=== PATIENT | male | born 1950 | race Caucasian/White ===

== ENCOUNTER 2024-12-10 22:18 | Inpatient (IN) | payer OTHER, SELFPAY ==
[2024-12-10 18:05] VITALS: BP 151/83
--- NOTE | 2024-12-10 18:08 | ED.GENMED ---
ED Provider Triage
<Deepak Vallejo PA-C - Last Filed: 12/10/24 18:10>
-
Patient seen by provider in Triage?: Seen in Triage
Attestation: A medical screening examination has been initiated by a qualified medical provider. Based on the assessment performed at this time, it has been determined that an emergent medical condition may exist and the patient has been informed
that further medical evaluation and possible additional diagnostic testing may be needed.
HPI: 74-year-old male presents with cough fatigue and fever. Several weeks ago he had influenza A. He really visit his family doctor and was started on amoxicillin and Tessalon. He has been on this but he now has a fever. Temperature at home was
102.7. He is afebrile triage with normal heart rate and blood pressure. Will order labs COVID and flu testing as well as chest x-ray
GENERAL: Alert , in no apparent distress
EYE: No visual abnormalities.
NECK: Trachea midline
ENT: No visible abnormalities.
LUNGS: No acute respiratory distress
NEUROLOGICAL: Alert and oriented
SKIN: Skin intact. No visible changes.
MUSCULOSKELETAL: Moving extremities normally
PSYCH: Normal and appropriate interaction.
This is a medical evaluation conducted in person to initiate diagnostic evaluation and provide initial therapeutics. Please see further documentation by the treating clinician.
History of Present Illness
<Deepak Vallejo PA-C - Last Filed: 12/10/24 18:10>
General
Chief Complaint: Fever
Time Seen by Provider: 12/10/24 20:36
<Armando Romero DO - Last Filed: 12/10/24 21:00>
General
Source: patient and family
Exam Limitations: none
Nursing documentation reviewed up to this point in time: agreed with
History of Present Illness
History of Present Illness:
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
methotrexate followed by rheumatology today he was confused had fever cough decreased p.o. intake no abdominal pain
Past History
<Armando Romero DO - Last Filed: 12/10/24 21:00>
Past History
ED Past Medical History: Other (RA, polymyalgia)
Social History
Tobacco: Former smoker
Alcohol: None
Drug: None
Living: with family
Employment: Retired
Review of Systems
<Armando Romero DO - Last Filed: 12/10/24 21:00>
Review of Systems
All Other Systems: Not applicable
Constitutional: Reports fever, fatigue and chills
Respiratory: Reports cough and trouble breathing
Cardiac: Reports no symptoms
ABD/GI: Reports nausea and anorexia
: Reports no symptoms
Skin: Reports no symptoms
Neurological: Reports weakness
Phy Exam
<Armando Romero DO - Last Filed: 12/10/24 21:00>
Physical Exam
Physical Exam:
Physical Exam
General: Ill-appearing male cough
Neck: Lips are slightly
Heart: Regular
Lungs: Rhonchi with diminished breath sounds on the
Abdomen: Nontender
Neuro: alert and oriented. no focal neurological deficits
Skin: no rash
Psychiatric: well kept. interactive and cooperative
Extremities: no edema. no calf tenderness.
Course
<Deepak Vallejo PA-C - Last Filed: 12/10/24 18:10>
Orders/Labs/Results
Orders:
Orders
12/10/24 18:05
CR Chest - 2 Views Urgent
Comment:
Reason For Exam: cough, fever
12/10/24 18:23
COVID-19 Antigen Urgent
Source: Nasal Swab
Complete Blood Count/With Diff Urgent
Comprehensive Metabolic Panel Urgent
Influenza A+B Rapid Molecular Urgent
TOVA Source: Nasal Swab
Specimen Description:
12/10/24 20:49
Acetaminophen [Tylenol] 650 mg PO NOW STA
Ipratropium/Albuterol Sulfate [Duoneb] 3 ml INH R NOW STA
12/10/24 20:50
Lactic Acid Urgent
Cefepime HCl [Maxipime] 2,000 mg IV NOW STA
O2 Therapy [RESP] Urgent
Titrate/Wean O2 to maintain O2 sat greater than (%): 98
12/10/24 21:00
Blood Culture Q30M
TOVA Source: Blood/Venous
Specimen Description:
12/10/24 21:30
Blood Culture Q30M
TOVA Source: Blood/Venous
Specimen Description:
Abnormal Lab Results
12/10/24
18:23
WBC 26.8 H 10^3/uL
(4.8-10.8)
RBC 4.46 L 10^6/uL
(4.70-6.10)
MCV 94.6 H fL
(80.0-94.0)
MCH 32.5 H pg
(27.0-31.0)
Abs Immat Gran (auto) 0.2 H 10^3/uL
(0-0.05)
Absolute Neuts (auto) 22.9 H 10^3/uL
(1.4-6.5)
Absolute Monos (auto) 1.6 H 10^3/uL
(0.1-0.6)
Immature Gran % 0.7 H %
(0-0.5)
Neutrophils % 85.5 H %
(42.2-75.2)
Lymphocytes % 7.2 L %
(20.5-51.1)
Sodium 133 L mmol/L
(135-145)
Chloride 97 L mmol/L
(98-107)
Glucose 107 H mg/dl
(70-99)
Total Bilirubin 1.5 H mg/dl
(0.2-1.3)
12/10/24 18:23
12/10/24 18:23
Vital Signs
Initial and Last Documented VS:
Initial Vital Signs
Temp Pulse Resp BP Pulse Ox
99.2 F 75 20 151/83 96
12/10/24 18:05 12/10/24 18:05 12/10/24 18:05 12/10/24 18:05 12/10/24 18:05
Last Documented Vital Signs
Temp Pulse Resp BP Pulse Ox
99.9 F 71 16 139/85 96
12/10/24 20:42 12/10/24 20:42 12/10/24 20:42 12/10/24 20:42 12/10/24 20:42
<Armando Romero, DO - Last Filed: 12/10/24 21:00>
Orders/Labs/Results
Orders:
Orders
12/10/24 18:05
CR Chest - 2 Views Urgent
Comment:
Reason For Exam: cough, fever
12/10/24 18:23
COVID-19 Antigen Urgent
Source: Nasal Swab
Complete Blood Count/With Diff Urgent
Comprehensive Metabolic Panel Urgent
Influenza A+B Rapid Molecular Urgent
TOVA Source: Nasal Swab
Specimen Description:
12/10/24 20:49
Acetaminophen [Tylenol] 650 mg PO NOW STA
Ipratropium/Albuterol Sulfate [Duoneb] 3 ml INH R NOW STA
12/10/24 20:50
Lactic Acid Urgent
Cefepime HCl [Maxipime] 2,000 mg IV NOW STA
O2 Therapy [RESP] Urgent
Titrate/Wean O2 to maintain O2 sat greater than (%): 98
12/10/24 21:00
Blood Culture Q30M
TOVA Source: Blood/Venous
Specimen Description:
12/10/24 21:30
Blood Culture Q30M
TOVA Source: Blood/Venous
Specimen Description:
Abnormal Lab Results
12/10/24
18:23
WBC 26.8 H 10^3/uL
(4.8-10.8)
RBC 4.46 L 10^6/uL
(4.70-6.10)
MCV 94.6 H fL
(80.0-94.0)
MCH 32.5 H pg
(27.0-31.0)
Abs Immat Gran (auto) 0.2 H 10^3/uL
(0-0.05)
Absolute Neuts (auto) 22.9 H 10^3/uL
(1.4-6.5)
Absolute Monos (auto) 1.6 H 10^3/uL
(0.1-0.6)
Immature Gran % 0.7 H %
(0-0.5)
Neutrophils % 85.5 H %
(42.2-75.2)
Lymphocytes % 7.2 L %
(20.5-51.1)
Sodium 133 L mmol/L
(135-145)
Chloride 97 L mmol/L
(98-107)
Glucose 107 H mg/dl
(70-99)
Total Bilirubin 1.5 H mg/dl
(0.2-1.3)
12/10/24 18:23
12/10/24 18:23
Vital Signs
Initial and Last Documented VS:
Initial Vital Signs
Temp Pulse Resp BP Pulse Ox
99.2 F 75 20 151/83 96
12/10/24 18:05 12/10/24 18:05 12/10/24 18:05 12/10/24 18:05 12/10/24 18:05
Last Documented Vital Signs
Temp Pulse Resp BP Pulse Ox
99.9 F 71 16 139/85 96
12/10/24 20:42 12/10/24 20:42 12/10/24 20:42 12/10/24 20:42 12/10/24 20:42
<Armando Romero DO - Last Filed: 12/10/24 21:00>
MDM/Problems Addressed
Differential Diagnosis Includes:
Pneumonia bronchitis bacteremia immunosuppressed
MDM/Problems Addressed:
Cough shortness of
Chronic conditions affecting care:
Rheumatologic
Chronic conditions affecting care: Immunosuppressed
Acute Exacerbation and/or Progression of Chronic Illness: Immunosuppressed
<Armando Romero DO - Last Filed: 12/10/24 21:00>
*Radiology
Radiology exam reviewed: radiology read reviewed
*EKG
Interpreted by ED Provider?: Yes
Interpretation: normal
Comparison EKG: no comparison EKG present
Heart Rate: 78
Rate: normal
Rhythm: sinus
Ischemia: non-specific ST changes
*Trackmobile Operator Interpretation
Rate: normal
Interpretation: normal
Heart Rate: 78
Rhythm: sinus
*Critical Care Note
Total Time (30-74mins, 75-104mins- exclusive of procedures): Not Applicable
<Armando Romero DO - Last Filed: 12/10/24 21:00>
Update Note
Update Note:
Update patient is fairly symptomatic just finished course of amoxicillin he is immunosuppressed, he is febrile is confused earlier today white count is up has been on steroids will check cultures low threshold to admit patient and daughter in
agreement
ED Attending Note
<Deepak Vallejo PA-C - Last Filed: 12/10/24 18:10>
-
Portions of this chart may have been created with voice recognition software.� Occasional wrong word or��sound alike� substitutions may have occurred due to the inherent limitations of voice recognition software.
Discharge Plan
Departure
Patient Disposition: Admit
Date of Disposition: 12/10/24
Time of Disposition: 20:59
Admit to: Med/Surg
Presentation/result/management discussed w/ accepting MD/DO: Hospitalist
Patient with high blood pressure during this ER visit?: No
Condition: Fair
Covid-19: Not Applicable
Discharge Problem:
Pneumonia
Interventions
Interventions:
*Risk Screen - Suicide Last Done: 12/10/24 18:05
*General Assessment Last Done: 12/10/24 18:05
*Neglect/Abuse Screening Last Done: 12/10/24 18:05
Discharge Date and Time
Print Language: SLOVAK
[2024-12-10 18:43] LABS: % Basophils 0.3 % (0-2); % Eosinophils 0.5 % (0-6); % Immature Granulocytes 0.7 % (0-0.5); % Lymphocytes 7.2 % (20.5-51.1); % Monocytes 5.8 % (1.7-9.3); % Neutrophils 85.5 % (42.2-75.2); Absolute Basophils 0.1 10^3/uL (0-0.2); Absolute Eosinophils 0.1 10^3/uL (0-0.7); Absolute Immature Granulocytes 0.2 10^3/uL (0-0.05); Absolute Lymphocytes 1.9 10^3/uL (1.2-3.4); Absolute Monocytes 1.6 10^3/uL (0.1-0.6); Absolute Neutrophils 22.9 10^3/uL (1.4-6.5); Hematocrit 42.2 % (39.0-52.0); Hemoglobin 14.5 g/dL (13.0-18.0); Mean Corp Hgb Conc. 34.4 g/dL (33.0-37.0); Mean Corpuscular Hgb 32.5 pg (27.0-31.0); Mean Corpuscular Volume 94.6 fL (80.0-94.0); Mean Platelet Volume 8.8 fL (7.4-10.4); Nucleated Red Blood Cells % 0 % (-); Platelet Count 324 10^3/uL (130-400); Red Blood Cell Count 4.46 10^6/uL (4.70-6.10); Red Cell Dist. Width 12.6 % (11.5-14.5); White Blood Cell Count 26.8 10^3/uL (4.8-10.8)
[2024-12-10 18:58] LABS: ALT (SGPT) 33 U/L (0-50); AST (SGOT) 41 U/L (17-59); Albumin 4.5 g/dl (3.5-5.0); Alkaline Phosphatase 101 U/L (38-126); Blood Urea Nitrogen 19 mg/dl (9-20); Calcium 9.6 mg/dl (8.4-10.2); Carbon Dioxide 23 mmol/L (22-30); Chloride 97 mmol/L (98-107); Glucose 107 mg/dl (70-99); Potassium 5.1 mmol/L (3.5-5.1); Sodium 133 mmol/L (135-145); Total Bilirubin 1.5 mg/dl (0.2-1.3); Total Protein 7.4 g/dl (6.3-8.2); eGFR > 60.00
[2024-12-10 19:15] LABS: COVID-19 Antigen Negative (Negative)
[2024-12-10 20:30] VITALS: BP 143/78
[2024-12-10 20:41] VITALS: BP 139/85
[2024-12-10 20:42] VITALS: BP 139/85
[2024-12-10] MEDS: NSS 1000 IV ×2 (21:13→23:57)
[2024-12-10] MEDS: MAXIPIME 2000 MG IV (21:14)
[2024-12-10] MEDS: DUONEB 3 ML INH (21:14)
[2024-12-10] MEDS: TYLENOL 650 MG PO (21:14)
[2024-12-10 21:27] LABS: Lactic Acid 0.9 mmol/L (0.7-2.0)
[2024-12-10 22:00] VITALS: BP 152/65
--- NOTE | 2024-12-10 22:04 | HPS.HSE ---
Family Physician
-
Family Physician: Cheryl Boss
Chief Complaint
-
cough
History of Present Illness
74-year-old male past medical history of rheumatoid arthritis, polymyositis GERD, hypertension, anxiety/depression, hypercholesteremia, presenting with fevers today.
He had influenza A several weeks ago with cough and shortness of breath at that time. He saw his family doctor and was started on amoxicillin and Tessalon's which she completed with improvement. His daughter also had pneumonia. Around 2 weeks ago
he developed recurrent symptoms of shortness of breath with exertion and cough and bodyaches. Today he developed fever. No nausea vomiting or diarrhea. Denies chest pain. Denies vomiting or diarrhea.
Smoker in the past. Drinks alcohol occasionally.
Medical History
Past Medical History
Past Medical History: Reports Other (rheumatoid arthritis, polymyositis GERD, hypertension, anxiety/depression, hypercholesteremia,)
Past Surgical History: Reports None
Social History
Tobacco: Non-smoker
Alcohol: None
Drug: None
Family History
Family History: Not pertinent
Allergies / Home Medications
Allergies reflects when Allergies were last updated in [employer].
Home Medications with original date entered in [employer]
Allergy/Medication List:
Allergies
Allergy/AdvReac Type Severity Reaction Status Date / Time
azathioprine [From Imuran] Allergy fever Verified 12/10/24 18:14
oxycodone Allergy change of Verified 12/10/24 18:14
behavior
Home Medications
acetaminophen 650 mg tablet,extended release 1,300 mg PO Q8HPRN PRN mild pain/fever 12/10/24
albuterol sulfate 90 mcg/actuation aerosol inhaler 2 puff inhalation R Q6HPRN PRN sob 12/10/24
amlodipine 5 mg tablet 5 mg PO HS 12/10/24
ascorbic acid (vitamin C) 500 mg tablet (Vitamin C) 500 mg PO DAILY 12/10/24
bupropion HCl 150 mg 24 hr tablet, extended release 150 mg PO DAILY 12/10/24
carvedilol 25 mg tablet 25 mg PO BID 12/10/24
celecoxib 200 mg capsule 400 mg PO DAILY 12/10/24
ezetimibe 10 mg tablet 10 mg PO HS 12/10/24
famotidine 40 mg tablet 40 mg PO BID 12/10/24
gabapentin 600 mg tablet 600 mg PO TID 12/10/24
lisinopril 20 mg tablet 20 mg PO DAILY 12/10/24
magnesium oxide 200 mg PO DAILY 12/10/24
methotrexate sodium 2.5 mg tablet 2.5 mg PO MOTUWETHFR 12/10/24
mycophenolate mofetil 250 mg capsule 500 mg PO BID 12/10/24
omeprazole 40 mg capsule,delayed release 40 mg PO DAILY 12/10/24
therapeutic multivitamin 1 tab PO DAILY 12/10/24
Review of Systems
-
History Source: Patient
A 12 point ROS was completed and negative except as noted: Yes
Constitutional: Reports No Symptoms
EENT: Reports No Symptoms
Respiratory: Reports See HPI
Cardiac: Reports No Symptoms
Abdomen/GI: Reports No Symptoms
: Reports No Symptoms
Musculoskeletal: Reports No Symptoms
Skin: Reports No Symptoms
Neurological: Reports No Symptoms
Endocrine: Reports No Symptoms
Hematologic/Lymphatic: Reports No Symptoms
Psych: Reports No Symptoms
Physical Exam
Vital Signs
Vital Signs
Temp Pulse Resp BP Pulse Ox
99.9 F 71 16 139/85 96
12/10/24 20:42 12/10/24 20:42 12/10/24 20:42 12/10/24 20:42 12/10/24 20:42
Physical Exam
General: Well Developed, Well Nourished and No Apparent Distress
HEENT: NormoCephalic, Moist mucous membranes and Atraumatic
Respiratory: Clear
Cardiac: S1/S2 and Regular Rhythm; No Murmur or Rub
GI: Soft, Non Tender, Non Distended and Normal Bowel Sounds; No Organomegaly
Rectal: Deferred by Provider
Musculoskeletal: No Clubbing, No Cyanosis and No Edema
Skin: No Rash
Neuro: Nonfocal/grossly intact
Laboratory Results
-
12/10/24 18:23
12/10/24 18:23
Laboratory Results
Lactic Acid 0.9 mmol/L (0.7-2.0) 12/10/24 21:03
Total Bilirubin 1.5 mg/dl (0.2-1.3) H 12/10/24 18:23
AST 41 U/L (17-59) 12/10/24 18:23
ALT 33 U/L (0-50) 12/10/24 18:23
Alkaline Phosphatase 101 U/L (38-126) 12/10/24 18:23
Data Reviewed
-
Lab Data: Labs Reviewed by me
Old Records: Reviewed
Impression/Plan
-
IMPRESSION:
PLAN:
# Right middle lobe pneumonia in immunocompromised patient
-COVID and influenza negative
-Check blood cultures
-Chest x-ray shows right middle lobe pneumonia
-IV fluids
-Sputum culture
-Cefepime/doxycycline
Rheumatoid arthritis
-Continue celecoxib
-Continue methotrexate
Polymyositis
-Continue mycophenolate
Essential hypertension
-Continue amlodipine, lisinopril
GERD
-Continue Pepcid, omeprazole
Anxiety/depression
-Continue bupropion
Hypercholesteremia
-Continue Zetia
Full code
DVT prophylaxis�heparin
Regular diet
[2024-12-10 23:18] VITALS: BP 152/65
[2024-12-10] MEDS: NORVASC 5 MG PO (23:55)
[2024-12-10] MEDS: ZETIA 10 MG PO (23:55)
[2024-12-10] MEDS: NEURONTIN 600 MG PO (23:55)
[2024-12-11] MEDS: MAXIPIME 2000 MG IV ×3 (03:41→20:55)
[2024-12-11] MEDS: STERILE WATER FOR INJECTION 10 ML IV ×3 (03:42→20:55)
[2024-12-11] MEDS: TYLENOL 650 MG PO ×3 (05:45→21:45)
[2024-12-11 06:43] LABS: % Basophils 0.3 % (0-2); % Immature Granulocytes 0.8 % (0-0.5); % Lymphocytes 7.9 % (20.5-51.1); % Monocytes 8.2 % (1.7-9.3); % Neutrophils 81.8 % (42.2-75.2); Absolute Basophils 0.1 10^3/uL (0-0.2); Absolute Eosinophils 0.2 10^3/uL (0-0.7); Absolute Immature Granulocytes 0.2 10^3/uL (0-0.05); Absolute Lymphocytes 1.7 10^3/uL (1.2-3.4); Absolute Monocytes 1.8 10^3/uL (0.1-0.6); Absolute Neutrophils 18.1 10^3/uL (1.4-6.5); Hematocrit 39.6 % (39.0-52.0); Hemoglobin 13.2 g/dL (13.0-18.0); Mean Corp Hgb Conc. 33.3 g/dL (33.0-37.0); Mean Corpuscular Hgb 32.3 pg (27.0-31.0); Mean Corpuscular Volume 96.8 fL (80.0-94.0); Mean Platelet Volume 9.3 fL (7.4-10.4); Nucleated Red Blood Cells % 0 % (-); Platelet Count 275 10^3/uL (130-400); Red Blood Cell Count 4.09 10^6/uL (4.70-6.10); Red Cell Dist. Width 12.8 % (11.5-14.5); White Blood Cell Count 22.1 10^3/uL (4.8-10.8)
[2024-12-11 07:50] VITALS: BP 144/74
[2024-12-11] MEDS: THERAGRAN 1 TABLET PO (07:54)
[2024-12-11] MEDS: MAG-TAB SR 84 MG PO (07:54)
[2024-12-11] MEDS: PROTONIX 40 MG PO (07:54)
[2024-12-11] MEDS: VIBRAMYCIN 100 MG PO ×2 (07:54→20:59)
[2024-12-11] MEDS: NEURONTIN 600 MG PO ×3 (07:54→21:46)
[2024-12-11] MEDS: WELLBUTRIN XL (24 hour extended release) 150 MG PO (07:54)
[2024-12-11] MEDS: PEPCID 20 MG PO ×2 (07:54→20:56)
[2024-12-11] MEDS: ZESTRIL 20 MG PO (07:54)
[2024-12-11] MEDS: VITAMIN C 500 MG PO (07:55)
[2024-12-11] MEDS: CELLCEPT 500 MG PO ×2 (07:55→20:54)
[2024-12-11] MEDS: COREG 25 MG PO ×2 (07:55→20:54)
[2024-12-11] MEDS: CELEBREX 200 MG PO ×2 (07:55→20:54)
[2024-12-11] MEDS: HEPARIN 5000 UNITS SC ×2 (07:56→20:55)
[2024-12-11 08:30] LABS: ALT (SGPT) 24 U/L (0-50); AST (SGOT) 26 U/L (17-59); Albumin 3.1 g/dl (3.5-5.0); Alkaline Phosphatase 82 U/L (38-126); Blood Urea Nitrogen 12 mg/dl (9-20); Calcium 8.8 mg/dl (8.4-10.2); Carbon Dioxide 23 mmol/L (22-30); Chloride 105 mmol/L (98-107); Estimated Creatinine Clearance 112 ml/min; Glucose 102 mg/dl (70-99); Potassium 4.1 mmol/L (3.5-5.1); Sodium 135 mmol/L (135-145); Total Bilirubin 1.2 mg/dl (0.2-1.3); Total Protein 5.8 g/dl (6.3-8.2); eGFR > 60.00
[2024-12-11] MEDS: NSS 1000 IV ×2 (10:19→20:54)
--- NOTE | 2024-12-11 11:48 | W.PN.HOSP.TC ---
Today's Communication/Plan
-
Monitor vital signs
see plan
Continue with antibiotics
Monitor leukocytosis
Follow cultures
Assessment / Plan
Assessment / Plan
General: Well Developed, Well Nourished and No Apparent Distress
HEENT: NormoCephalic, Moist mucous membranes and Atraumatic
Respiratory: Clear
Cardiac: S1/S2 and Regular Rhythm; No Murmur or Rub
GI: Soft, Non Tender, Non Distended and Normal Bowel Sounds
Musculoskeletal: No Edema
Neuro: Nonfocal/grossly intact
Right middle lobe pneumonia in immunocompromised patient; suspect community-acquired
-COVID and influenza negative
-Blood culture
-Chest x-ray shows right middle lobe pneumonia
-IV fluids
-Sputum culture pending
-Continue with cefepime/doxycycline
Rheumatoid arthritis
-Continue celecoxib
-Continue methotrexate
Polymyositis
-Continue mycophenolate
Essential hypertension
-Continue amlodipine, lisinopril
GERD
-Continue Pepcid, omeprazole
Anxiety/depression
-Continue bupropion
History of multiple back surgeries
Lidocaine patch
Patient is currently following with pain management and physician at [place]
Hypercholesteremia
-Continue Zetia
Full code
DVT prophylaxis�heparin
Anticipated Discharge: 24 - 48 hours
Subjective/Interval History
-
Date of Service: December 11, 2024
Denies fever
Objective Data
-
Labs:
Laboratory Results
12/11/24 12/11/24
05:50 08:03
WBC 22.1 H
Hgb 13.2
Hct 39.6
Plt Count 275
Sodium Cancelled 135
Potassium Cancelled 4.1
Chloride Cancelled 105
Carbon Dioxide Cancelled 23
BUN Cancelled 12
Creatinine Cancelled 0.7
Glucose Cancelled 102 H
Calcium Cancelled 8.8
Total Bilirubin Cancelled 1.2
AST Cancelled 26
ALT Cancelled 24
Alkaline Phosphatase Cancelled 82
Vital Signs:
Vital Signs
Temp Pulse Resp BP Pulse Ox
99.5 F 71 20 144/74 95
12/11/24 07:50 12/11/24 07:55 12/11/24 08:00 12/11/24 07:55 12/11/24 07:50
I&O
12/10/24 12/11/24 12/12/24
06:59 06:59 06:59
Output Total 525 / 525
Balance -525 / -525
--- NOTE | 2024-12-11 11:58 | PTCARENOTE ---
Received pt from ED via stretcher. Stretcher pulled into room next to bed, pt ambulated to bed with assist x1 and rolling walker. AAOx3. Assessed and oriented to room. Bed alarm placed, unplugged. Pt verbalized understanding of call carter. Call carter
within close reach. Will continue to monitor.
[2024-12-11] MEDS: LIDOCAINE 4% PATCH 1 PATCH TOPICAL (12:11)
[2024-12-11 14:20] VITALS: BP 155/67
[2024-12-11] MEDS: ZETIA 10 MG PO (21:45)
[2024-12-11] MEDS: NORVASC 5 MG PO (22:29)
[2024-12-11 23:00] VITALS: BP 134/73
[2024-12-12] MEDS: MAXIPIME 2000 MG IV ×3 (04:31→21:09)
[2024-12-12] MEDS: STERILE WATER FOR INJECTION 10 ML IV ×4 (04:31→21:09)
[2024-12-12 05:48] VITALS: BMI 31.6
[2024-12-12 07:20] VITALS: BP 143/72
[2024-12-12] MEDS: NSS 1000 IV (07:20)
[2024-12-12 07:25] LABS: % Basophils 0.6 % (0-2); % Eosinophils 2.8 % (0-6); % Immature Granulocytes 0.7 % (0-0.5); % Lymphocytes 11.8 % (20.5-51.1); % Monocytes 10.6 % (1.7-9.3); % Neutrophils 73.5 % (42.2-75.2); Absolute Basophils 0.1 10^3/uL (0-0.2); Absolute Eosinophils 0.4 10^3/uL (0-0.7); Absolute Immature Granulocytes 0.1 10^3/uL (0-0.05); Absolute Lymphocytes 1.5 10^3/uL (1.2-3.4); Absolute Monocytes 1.3 10^3/uL (0.1-0.6); Absolute Neutrophils 9.3 10^3/uL (1.4-6.5); Hematocrit 37.3 % (39.0-52.0); Hemoglobin 12.7 g/dL (13.0-18.0); Mean Corpuscular Hgb 31.8 pg (27.0-31.0); Mean Corpuscular Volume 93.3 fL (80.0-94.0); Mean Platelet Volume 8.6 fL (7.4-10.4); Nucleated Red Blood Cells % 0 % (-); Platelet Count 262 10^3/uL (130-400); Red Cell Dist. Width 12.7 % (11.5-14.5); White Blood Cell Count 12.6 10^3/uL (4.8-10.8)
[2024-12-12 07:55] LABS: Blood Urea Nitrogen 10 mg/dl (9-20); Calcium 8.8 mg/dl (8.4-10.2); Carbon Dioxide 21 mmol/L (22-30); Chloride 108 mmol/L (98-107); Estimated Creatinine Clearance 111 ml/min; Glucose 87 mg/dl (70-99); Potassium 4.2 mmol/L (3.5-5.1); Sodium 137 mmol/L (135-145); eGFR > 60.00
[2024-12-12] MEDS: WELLBUTRIN XL (24 hour extended release) 150 MG PO (07:59)
[2024-12-12] MEDS: NEURONTIN 600 MG PO ×3 (07:59→21:01)
[2024-12-12] MEDS: CELEBREX 200 MG PO ×2 (08:00→21:07)
[2024-12-12] MEDS: CELLCEPT 500 MG PO ×2 (08:00→21:08)
[2024-12-12] MEDS: VIBRAMYCIN 100 MG PO ×2 (08:00→21:01)
[2024-12-12] MEDS: THERAGRAN 1 TABLET PO (08:01)
[2024-12-12] MEDS: COREG 25 MG PO ×2 (08:01→21:08)
[2024-12-12] MEDS: PEPCID 20 MG PO ×2 (08:01→21:09)
[2024-12-12] MEDS: VITAMIN C 500 MG PO (08:02)
[2024-12-12] MEDS: PROTONIX 40 MG PO (08:02)
[2024-12-12] MEDS: MAG-TAB SR 84 MG PO (08:02)
[2024-12-12] MEDS: HEPARIN 5000 UNITS SC ×2 (08:03→21:08)
[2024-12-12] MEDS: LIDOCAINE 4% PATCH 1 PATCH TOPICAL (08:04)
[2024-12-12] MEDS: ZESTRIL 20 MG PO (08:05)
[2024-12-12 08:38] LABS: Hepatitis C Antibody Negative (Negative)
--- NOTE | 2024-12-12 12:10 | W.PN.HOSP.TC ---
Today's Communication/Plan
-
Monitor vital signs see plan
Monitor sputum culture
Continue antibiotics
Monitor leukocytosis
Assessment / Plan
Assessment / Plan
General: Well Developed, Well Nourished and No Apparent Distress
HEENT: NormoCephalic, Moist mucous membranes and Atraumatic
Respiratory: Clear
Cardiac: S1/S2 and Regular Rhythm; No Murmur or Rub
GI: Soft, Non Tender, Non Distended and Normal Bowel Sounds
Musculoskeletal: No Edema
Neuro: Nonfocal/grossly intact
Right middle lobe pneumonia in immunocompromised patient; suspect community-acquired
-COVID and influenza negative
-Blood culture NGTD
-Chest x-ray shows right middle lobe pneumonia
-IV fluids
-Sputum culture. Gram positive cocci, monitor
-Continue with cefepime/doxycycline
Rheumatoid arthritis
-Continue celecoxib
-Continue methotrexate
Polymyositis
-Continue mycophenolate
Essential hypertension
-Continue amlodipine, lisinopril
GERD
-Continue Pepcid, omeprazole
Anxiety/depression
-Continue bupropion
History of multiple back surgeries
Lidocaine patch
Patient is currently following with pain management and physician at [facility]
Hypercholesteremia
-Continue Zetia
Full code
DVT prophylaxis�heparin
Anticipated Discharge: 24 - 48 hours
Subjective/Interval History
-
Date of Service: December 12, 2024
denies pain
Objective Data
-
Labs:
Laboratory Results
12/12/24
07:09
WBC 12.6 H
Hgb 12.7 L
Hct 37.3 L
Plt Count 262
Sodium 137
Potassium 4.2
Chloride 108 H
Carbon Dioxide 21 L
BUN 10
Creatinine 0.7
Glucose 87
Calcium 8.8
Vital Signs:
Vital Signs
Temp Pulse Resp BP Pulse Ox
98.2 F 63 14 143/72 96
12/12/24 07:20 12/12/24 08:05 12/12/24 07:20 12/12/24 08:05 12/12/24 07:20
I&O
12/11/24 12/12/24 12/13/24
06:59 06:59 06:59
Output Total 525 / 525 500 / 500
Balance -525 / -525 -500 / -500
--- NOTE | 2024-12-12 14:34 | CM ---
Met with patient to obtain information for assessment. Patient stated that he lives in a [place] community with his daughter who is cognitively challenged. His house is all one floor, two steps to enter. He uses a walker and a cane. He has been
independent with his ADLs, personal care, dressing and bathing. 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 He drives and can get to appointments. He stated that he has another daughter who is close and supportive.
He has never had VN. He has not been to a SNF.
Patient has a prescription plan and uses, [facility] in [place] for all of his medications.
Patient stated that he feels he will be able to return home when stable but will remain agreeable to what is indicated at time of discharge.
Plan: Case management will continue to follow and assist with discharge planning. Patient is hopeful that he will be able to return right home.
[2024-12-12 14:51] VITALS: BP 140/65
[2024-12-12] MEDS: ZETIA 10 MG PO (21:01)
[2024-12-12] MEDS: NORVASC 5 MG PO (21:06)
[2024-12-12 23:26] VITALS: BP 137/66
[2024-12-13] MEDS: MAXIPIME 2000 MG IV ×2 (05:04→12:31)
[2024-12-13 06:00] VITALS: BMI 31.3
[2024-12-13 08:26] VITALS: BP 131/75
[2024-12-13] MEDS: VIBRAMYCIN 100 MG PO (08:40)
[2024-12-13] MEDS: PROTONIX 40 MG PO (08:40)
[2024-12-13] MEDS: PEPCID 20 MG PO (08:40)
[2024-12-13] MEDS: THERAGRAN 1 TABLET PO (08:40)
[2024-12-13] MEDS: LIDOCAINE 4% PATCH 1 PATCH TOPICAL (08:40)
[2024-12-13] MEDS: MAG-TAB SR 84 MG PO (08:40)
[2024-12-13] MEDS: NEURONTIN 600 MG PO (08:41)
[2024-12-13] MEDS: WELLBUTRIN XL (24 hour extended release) 150 MG PO (08:41)
[2024-12-13] MEDS: ZESTRIL 20 MG PO (08:41)
[2024-12-13] MEDS: COREG 25 MG PO (08:41)
[2024-12-13] MEDS: CELEBREX 200 MG PO (08:41)
[2024-12-13] MEDS: CELLCEPT 500 MG PO (08:41)
[2024-12-13] MEDS: VITAMIN C 500 MG PO (08:41)
[2024-12-13] MEDS: HEPARIN 5000 UNITS SC (08:42)
[2024-12-13 09:37] LABS: Blood Urea Nitrogen 12 mg/dl (9-20); Calcium 9.5 mg/dl (8.4-10.2); Carbon Dioxide 22 mmol/L (22-30); Chloride 103 mmol/L (98-107); Estimated Creatinine Clearance 97 ml/min; Glucose 92 mg/dl (70-99); Potassium 4.5 mmol/L (3.5-5.1); Sodium 137 mmol/L (135-145); eGFR > 60.00
--- NOTE | 2024-12-13 11:36 | W.PN.HOSP.TC ---
Addendum entered and electronically signed by Boubacar Roa MD 12/13/24 11:42:
Leukocytosis improving
Discharge today
Time of discharge 37 minutes
Original Note:
Today's Communication/Plan
-
Monitor vitals
See plan
CBC pending, if improving then will transition antibiotics to oral
Possible discharge today
Assessment / Plan
Assessment / Plan
General: Well Developed, Well Nourished and No Apparent Distress
HEENT: NormoCephalic, Moist mucous membranes and Atraumatic
Respiratory: Clear
Cardiac: S1/S2 and Regular Rhythm; No Murmur or Rub
GI: Soft, Non Tender, Non Distended and Normal Bowel Sounds
Musculoskeletal: No Edema
Neuro: Nonfocal/grossly intact
Right middle lobe pneumonia in immunocompromised patient; suspect community-acquired
-COVID and influenza negative
-Blood culture NGTD
-Chest x-ray shows right middle lobe pneumonia
-Sputum culture. Gram positive cocci, monitor. Final culture with usual oral shalom
-Continue with cefepime/doxycycline; likely will transition to cefdinir and doxycycline on discharge
CBC pending today; possible discharge today if improving
Rheumatoid arthritis
-Continue celecoxib
-Continue methotrexate
Polymyositis
-Continue mycophenolate
Essential hypertension
-Continue amlodipine, lisinopril
GERD
-Continue Pepcid, omeprazole
Anxiety/depression
-Continue bupropion
History of multiple back surgeries
Lidocaine patch
Patient is currently following with pain management and physician at [place]
Hypercholesteremia
-Continue Zetia
Full code
DVT prophylaxis�heparin
Anticipated Discharge: Today
Subjective/Interval History
-
Date of Service: December 13, 2024
denies pain
Objective Data
-
Labs:
Laboratory Results
12/13/24
08:30
WBC Pending
Hgb Pending
Hct Pending
Plt Count Pending
Sodium 137
Potassium 4.5
Chloride 103
Carbon Dioxide 22
BUN 12
Creatinine 0.8
Glucose 92
Calcium 9.5
Vital Signs:
Vital Signs
Temp Pulse Resp BP Pulse Ox
98 F 60 19 131/75 94
12/13/24 08:26 12/13/24 08:26 12/13/24 08:26 12/13/24 08:26 12/13/24 08:26
I&O
12/12/24 12/13/24 12/14/24
06:59 06:59 06:59
Intake Total 1979
Output Total 500 / 500
Balance -500 / -500 1979
[2024-12-13 11:38] LABS: % Basophils 0.8 % (0-2); % Eosinophils 3.6 % (0-6); % Immature Granulocytes 0.9 % (0-0.5); % Lymphocytes 15.4 % (20.5-51.1); % Monocytes 10.5 % (1.7-9.3); % Neutrophils 68.8 % (42.2-75.2); Absolute Basophils 0.1 10^3/uL (0-0.2); Absolute Eosinophils 0.4 10^3/uL (0-0.7); Absolute Immature Granulocytes 0.1 10^3/uL (0-0.05); Absolute Lymphocytes 1.8 10^3/uL (1.2-3.4); Absolute Monocytes 1.2 10^3/uL (0.1-0.6); Hematocrit 40.4 % (39.0-52.0); Hemoglobin 13.6 g/dL (13.0-18.0); Mean Corp Hgb Conc. 33.7 g/dL (33.0-37.0); Mean Corpuscular Hgb 31.5 pg (27.0-31.0); Mean Corpuscular Volume 93.5 fL (80.0-94.0); Mean Platelet Volume 9.4 fL (7.4-10.4); Nucleated Red Blood Cells % 0 % (-); Platelet Count 323 10^3/uL (130-400); Red Blood Cell Count 4.32 10^6/uL (4.70-6.10); Red Cell Dist. Width 12.7 % (11.5-14.5); White Blood Cell Count 11.6 10^3/uL (4.8-10.8)
--- NOTE | 2024-12-13 11:42 | W.DCSUMMARY ---
Discharge Summary
Discharge Data
Date of Admission: 12/10/24
Date of Discharge: 12/13/24
-
Pending Results: No
Hospital Course
74-year-old female with past medical history of rheumatoid arthritis, polymyositis, essential hypertension, GERD, anxiety, depression, multiple back surgeries, hyperlipidemia came to the hospital with right middle lobe pneumonia. Patient was
initially started on IV antibiotics which were later transitioned to oral antibiotics prior to discharge. His sputum culture grew mixed oral shalom. Given his immuno suppression he was treated for a longer duration of antibiotics. Once his
symptoms continue to improve, he was then discharged home with instructions to follow-up with all his physicians outpatient.
Discharge Plan
-
Patient Disposition: Home with Home Care
Discharge Diagnosis/Procedures: Right middle lobe pneumonia
History of rheumatoid arthritis, polymyositis
Diet: As tolerated
Activity: As tolerated
Driving Restrictions: As prior to admission
Bathing Restrictions: None
Blood Work: CBC next week with primary care provider
Others Tests: Chest x-ray in 4 weeks with primary care provider
Referrals:
Cheryl Boss, DO [Family Provider] - in less than 1 week
Prescriptions:
New
lidocaine 4 % Adhesive Patch,Medicated
1 patch topical DAILY Qty: 30 0RF
doxycycline hyclate 100 mg Capsule
100 mg PO Q12 Qty: 14 0RF
cefdinir 300 mg capsule
300 mg PO BID Qty: 14 0RF
Probiotic 10 billion cell capsule
10,000 mmu cells PO DAILY Qty: 10 0RF
Continued
celecoxib 200 mg Capsule
400 mg PO DAILY
carvedilol 25 mg Tablet
25 mg PO BID
gabapentin 600 mg Tablet
600 mg PO TID
mycophenolate mofetil 250 mg Capsule
500 mg PO BID
lisinopril 20 mg Tablet
20 mg PO DAILY
famotidine 40 mg Tablet
40 mg PO BID
therapeutic multivitamin Tablet
1 tab PO DAILY
amlodipine 5 mg Tablet
5 mg PO HS
omeprazole 40 mg Capsule,Delayed Release(Dr/Ec)
40 mg PO DAILY
acetaminophen 650 mg Tablet Extended Release
1,300 mg PO Q8HPRN PRN (Reason: mild pain/fever)
ascorbic acid (vitamin C) [Vitamin C] 500 mg Tablet
500 mg PO DAILY
methotrexate sodium 2.5 mg Tablet
2.5 mg PO MOTUWETHFR
albuterol sulfate 90 mcg/actuation Hfa Aerosol Inhaler
2 puff INHALATION R Q6HPRN PRN (Reason: sob)
ezetimibe 10 mg Tablet
10 mg PO HS
bupropion HCl 150 mg Tablet Extended Release 24 Hr
150 mg PO DAILY
magnesium oxide 200 mg magnesium Tablet
200 mg PO DAILY
Discharge Orders:
Discharge Patient (As Directed); Ordered 12/13/24
Ordered By: Boubacar Roa
Discharge Date and Time
Discharge Date/Time: 12/13/24 15:08
Print Language: CZECH
--- NOTE | 2024-12-13 12:18 | CM ---
Patient with [facility]x P[facility].
Met with patient who was preparing for d/c.
The patient says he feels ready to go home today. IMM completed.
He would like to have VN check at home and chooses [facility].
His daughter will provide transport home today.
Referral to [facility]iaison.
Plan home today with [facility].
[2024-12-13] MEDS: STERILE WATER FOR INJECTION 10 ML IV (12:31)
[2024-12-13 12:51] VITALS: BP 109/65
== END 2024-12-13 15:08 | disposition home health service (06) | DRG 194 ==
LOC: 3 WEST ACU 22:18
PROVIDERS: Physician Assistant; ADMITTING PHYSICIAN Hospitalist; ATTENDING PHYSICIAN Internal Medicine; EMERGENCY PHYSICIAN Emergency Medicine; FAMILY PHYSICIAN Family Medicine
DX: J18.9 Pneumonia, unspecified organism (principal); D84.9 Immunodeficiency, unspecified; M33.20 Polymyositis, organ involvement unspecified; M06.9 Rheumatoid arthritis, unspecified; I10 Essential (primary) hypertension; K21.9 Gastro-esophageal reflux disease without esophagitis; F32.A Depression, unspecified; F41.9 Anxiety disorder, unspecified; E78.00 Pure hypercholesterolemia, unspecified; Z11.52 Encounter for screening for COVID-19; Z87.891 Personal history of nicotine dependence; Z79.899 Other long term (current) drug therapy
CPT/HCPCS: 71046; 80048; 80053; 83605; 85025; 86803; 87040; 87070; 87205; 87502; 87811; 94640; 96361; 96374; 99285

== ENCOUNTER → 2025-01-27 16:51 | Outpatient (REF) | payer OTHER, SELFPAY | LOC: RAD 16:51 | PROVIDERS: ATTENDING PHYSICIAN Family Medicine | DX: G95.9 Disease of spinal cord, unspecified (principal); M54.12 Radiculopathy, cervical region | CPT/HCPCS: 72050 ==